=== PATIENT | male | born 1945 | race Caucasian/White ===

== ENCOUNTER 2021-10-03 07:34 | Day surgery (SDCO) | payer MEDICARE, OTHER ==
[~2021-10-03] VITALS: Ht 188 cm; Wt 103.9 kg
[2021-10-03 08:21] LABS: BASOPHIL 0.5 % (0-2); EOSINOPHIL 1.1 % (0-7); HCT 44.1 % (42.0-52.0); HGB 15.1 g/dl (13.2-18.0); LYMPHOCYTE 14.4 % (15-48); MCH 30.6 pg (25.0-31.0); MCHC 34.2 g/dL (32.0-36.0); MCV 89.3 fL (78.0-100.0); MONOCYTE 5.9 % (0-12); MPV 9.3 fL (6.0-9.5); NEUTROPHIL 77.3 % (41-80); NRBC 0; PLT 291 K/uL (150-400); RBC 4.94 M/uL (4.70-6.00); RDW 12.9 % (11.5-14.0); WBC 12.9 K/uL (4.0-10.5)
[2021-10-03 08:42] LABS: ALBUMIN 3.8 g/dL (3.4-5.0); BILIRUBIN - TOTAL 0.8 mg/dL (0.2-1.0); BUN/CREAT RATIO (CALC) 10.2 RATIO; CREATININE 1.18 mg/dL (0.67-1.17); GLOBULIN (CALCULATION) 3.4 g/dL; POTASSIUM 2.9 mmol/L (3.5-5.1); TOTAL PROTEIN 7.2 g/dL (6.4-8.2)
[2021-10-03 09:10] LABS: LACTIC ACID 2.2 mmol/L (0.4-1.9)
[2021-10-03 11:46] LABS: BILIRUBIN NEGATIVE (NEGATIVE); BLOOD NEGATIVE Ery/uL (NEGATIVE); CLARITY CLEAR (CLEAR); COLOR YELLOW (YELLOW); GLUCOSE (U) NORMAL (NORMAL); LEUKOCYTES NEGATIVE Leu/uL (NEGATIVE); NITRITE NEGATIVE (NEGATIVE); PROTEIN NEGATIVE (NEGATIVE); SPECIFIC GRAVITY 1.015 (1.001-1.030)
[2021-10-03] MEDS ORDERED: LIPITOR40 MG PO (13:59)
[2021-10-03] MEDS ORDERED: ASPIRIN EC81 MG PO (13:59)
[2021-10-03] MEDS ORDERED: NORVASC5 MG PO (13:59)
[2021-10-03] MEDS ORDERED: PLAVIX75 MG PO (13:59)
[2021-10-03] MEDS ORDERED: VITAMIN B-121000 MC4 PO (14:00)
[2021-10-03] MEDS ORDERED: WELLBUTRIN75 MG PO (14:07)
[2021-10-03] MEDS ORDERED: HYDROCHLOROTHIA25 MG PO (14:07)
[2021-10-03 17:14] LABS: MAGNESIUM 2.4 mg/dL (1.8-2.4); POTASSIUM 2.8 mmol/L (3.5-5.1)
[2021-10-04 06:25] LABS: BASOPHIL 0.7 % (0-2); EOSINOPHIL 1.9 % (0-7); HGB 13.7 g/dl (13.2-18.0); LYMPHOCYTE 27.8 % (15-48); MCH 30.9 pg (25.0-31.0); MCHC 34.3 g/dL (32.0-36.0); MCV 90.3 fL (78.0-100.0); MONOCYTE 9.7 % (0-12); MPV 9.4 fL (6.0-9.5); NEUTROPHIL 59.6 % (41-80); NRBC 0; PLT 252 K/uL (150-400); RBC 4.43 M/uL (4.70-6.00); WBC 7.5 K/uL (4.0-10.5)
[2021-10-04 06:43] LABS: BUN/CREAT RATIO (CALC) 12.6 RATIO; CREATININE 1.11 mg/dL (0.67-1.17); POTASSIUM 3.1 mmol/L (3.5-5.1)
[2021-10-04 11:02] LABS: BUN/CREAT RATIO (CALC) 12.1 RATIO; CREATININE 1.07 mg/dL (0.67-1.17); POTASSIUM 3.4 mmol/L (3.5-5.1)
[2021-10-05 07:09] LABS: BUN/CREAT RATIO (CALC) 11.6 RATIO; CREATININE 0.95 mg/dL (0.67-1.17); POTASSIUM 3.5 mmol/L (3.5-5.1)
[2021-10-05] MEDS ORDERED: KLOR-CON M2020 MEQ PO (11:53)
[2021-10-05] MEDS ORDERED: HCTZ12.5 MG PO (11:53)
== END 2021-10-05 15:00 | disposition home or self-care (01) ==
LOC: FER 07:34 → FMS 10:08
PROVIDERS: Emergency Medicine; Internal Medicine Cardiovascular Disease; ADMIT Internal Medicine
DX: R55 Syncope and collapse (principal); E87.6 Hypokalemia; T50.2X5A Adverse effect of carbonic-anhydrase inhibitors, benzothiadiazides and other diuretics, initial encounter; I45.10 Unspecified right bundle-branch block; I11.9 Hypertensive heart disease without heart failure; I69.354 Hemiplegia and hemiparesis following cerebral infarction affecting left non-dominant side; E78.5 Hyperlipidemia, unspecified; R00.1 Bradycardia, unspecified; I08.2 Rheumatic disorders of both aortic and tricuspid valves; I27.20 Pulmonary hypertension, unspecified; Z87.891 Personal history of nicotine dependence; Z79.02 Long term (current) use of antithrombotics/antiplatelets; Z79.82 Long term (current) use of aspirin; Z79.899 Other long term (current) drug therapy; Z20.822 Contact with and (suspected) exposure to COVID-19
CPT/HCPCS: 36415; 36600; 70450; 71045; 71275; 72170; 80048; 80053; 81003; 82803; 83605; 83735; 84132; 84145; 84484; 85025; 93005; G0378; Q9967; U0002